=== PATIENT | female | born 1995 | race African-American/Black ===

== ENCOUNTER 2022-05-17 18:18 | Emergency (ER) | payer OTHER ==
[~2022-05-17] VITALS: Ht 165.1 cm; Wt 50.0 kg
[2022-05-17] MEDS ORDERED: HYDROCODONE/ACETAMINOPHEN 5/325MG TABLET PO ONE (19:15)
[2022-05-17] MEDS ORDERED: IBUP-2029 MT (20:48)
[2022-05-17] MEDS ORDERED: IBUPROFEN 800MG TABLET PO ONE (21:00)
[2022-05-17 21:31] VITALS: BP 126/72
== END 2022-05-17 21:33 | disposition home or self-care (01) ==
LOC: ER 18:18
DX: S00.01XA Abrasion of scalp, initial encounter (principal); W22.8XXA Striking against or struck by other objects, initial encounter; Y93.89 Activity, other specified; Y92.520 Airport as the place of occurrence of the external cause; Y99.8 Other external cause status
CPT/HCPCS: 99284